=== PATIENT | male | born 1955 | race Caucasian/White ===

== ENCOUNTER → 2022-05-16 09:50 | Outpatient (BNVA) | payer MEDICARE, SELFPAY | PROVIDERS: Visit Provider Podiatrist Foot & Ankle Surgery | DX: M20.11 Hallux valgus (acquired), right foot (principal); M20.12 Hallux valgus (acquired), left foot; B35.1 Tinea unguium; L85.3 Xerosis cutis; I87.8 Other specified disorders of veins | CPT/HCPCS: 11721; 99203 ==

== ENCOUNTER → 2022-08-01 09:05 | Outpatient (BNVA) | payer MEDICARE, SELFPAY | PROVIDERS: Visit Provider Podiatrist Foot & Ankle Surgery | DX: E11.9 Type 2 diabetes mellitus without complications (principal); B35.1 Tinea unguium; I87.8 Other specified disorders of veins | CPT/HCPCS: 11055; 11721 ==

== ENCOUNTER → 2022-10-03 08:59 | Outpatient (BNVA) | payer MEDICARE, SELFPAY | PROVIDERS: Visit Provider Podiatrist Foot & Ankle Surgery | DX: E11.9 Type 2 diabetes mellitus without complications (principal); B35.1 Tinea unguium; I87.8 Other specified disorders of veins; L84 Corns and callosities | CPT/HCPCS: 11055; 11721 ==

== ENCOUNTER → 2022-12-12 08:49 | Outpatient (BNVA) | payer MEDICARE, SELFPAY | PROVIDERS: Visit Provider Podiatrist Foot & Ankle Surgery | DX: B35.1 Tinea unguium (principal); I87.8 Other specified disorders of veins; E11.9 Type 2 diabetes mellitus without complications; L84 Corns and callosities | CPT/HCPCS: 11721 ==